=== PATIENT | male | born 1995 | race Caucasian/White ===

== ENCOUNTER 2022-02-03 18:06 | Emergency (ER) | payer MEDICAID ==
--- NOTE | 2022-02-03 18:09 | ERPHSYRPT ---
- History of Present Illness Time Seen by Provider: 02/03/22 18:09 Source: patient Exam Limitations: no limitations Physician History: This is a left handed 26-year-old male who was cutting metal on a part of his car using a knife when the blade slipped and cut the first webspace of his right hand. Patient's last tetanus injection was 10 years ago. Timing/Duration: today Quality: painful Severity: mild Location: hands (Right hand first webspace dorsal aspect) Possible Causes: other (Knife blade) Associated Symptoms: denies symptoms Allergies/Adverse Reactions: No Known Drug Allergies Allergy (Verified 02/03/22 18:12) Hx Tetanus, Diphtheria Vaccination/Date Given: Yes Hx Influenza Vaccination/Date Given: No Hx Pneumococcal Vaccination/Date Given: No Travel Risk - International Travel Have you traveled outside of the country in past 3 weeks: No - Coronavirus Screening Are you exhibiting any of the following symptoms?: No Close contact with a COVID-19 positive Pt in past 14-21 Days: No - Review of Systems Constitutional: No Symptoms Eyes: No Symptoms Ears, Nose, & Throat: No Symptoms Respiratory: No Symptoms Cardiac: No Symptoms Abdominal/Gastrointestinal: No Symptoms Genitourinary Symptoms: No Symptoms Musculoskeletal: No Symptoms Skin: Other (Laceration dorsal aspect right hand1 cmfirst webspace) Neurological: No Symptoms Psychological: No Symptoms Endocrine: No Symptoms Hematologic/Lymphatic: No Symptoms Immunological/Allergic: No Symptoms All Other Systems: Reviewed and Negative - Past Medical History Pertinent Past Medical History: No - Past Surgical History Past Surgical History: No - Social History Smoking Status: Never smoker Exposure to second hand smoke: No Drug Use: none Patient Lives Alone: No - Nursing Vital Signs Nursing Vital Signs: Initial Vital Signs Temperature 97.9 F 02/03/22 18:13 Pulse Rate 85 02/03/22 18:13 Respiratory Rate 18 02/03/22 18:13 Blood Pressure 130/69 02/03/22 18:13 O2 Sat by Pulse Oximetry 97 02/03/22 18:13 Pain Scale Pain Intensity 5 - Physical Exam General Appearance: no apparent distress, alert, anxiety Eye Exam: PERRL/EOMI, eyes nml inspection Ears, Nose, Throat Exam: normal ENT inspection, moist mucous membranes Neck Exam: normal inspection, non-tender, supple, full range of motion Respiratory Exam: airway intact, No chest tenderness, No respiratory distress Gastrointestinal/Abdomen Exam: No tenderness Rectal Exam: not done Back Exam: normal inspection, normal range of motion, No CVA tenderness, No vertebral tenderness Extremity Exam: normal range of motion, pelvis stable, lacerations (1 cm laceration right hand first webspace dorsal aspect. No active bleeding. No foreign body. Tendons intact. Neurovascularly intact) Neurologic Exam: alert, oriented x 3, cooperative, bioassayist II-XII nml as tested, normal mood/affect, nml cerebellar function, nml station & gait, sensation nml Skin Exam: laceration (Lacerationsee above) Lymphatic Exam: No adenopathy SpO2 Interpretation: normal O2 Delivery: Room Air Procedures - Laceration/Wound Repair Right Dorsal Hand Time of Procedure: 18:35 Wound Location: Right, hand (Dorsal aspect first webspace) Wound Length (cm): 1 Wound's Depth, Shape: superficial, linear, into subcut Wound Explored: clean (Evaluation made to the base into bloodless field. No foreign body noted) Irrigated: Yes Hibiclens Prep: Yes Anesthesia: 1% Lidocaine Volume Anesthetic (ccs): 1.5 Wound Repaired With: sutures Suture Size/Type: 4-0, prolene Number of Sutures: 3 Layer Closure?: No Sterile Dressing Applied?: Yes Splint Applied?: No Ordered Tests: Active Orders 24 hr Category Date Time Status Wound Care STAT Care 02/03/22 18:24 Active Medication Summary Discontinued Medications Generic Name Dose Route Start Last Admin Trade Name Freq PRN Reason Stop Dose Admin Bacitracin Zinc 0.9 each 02/03/22 18:25 02/03/22 18:44 Bacitracin Packet 1 Each Pckt TP 02/03/22 18:26 Not Given STAT ONE Diphtheria/Tetanus/Acell Pertussis 0.5 ml 02/03/22 18:41 Tdap --Diph,Pertuss(Acell),Tet Vac/Pf 0.5 Ml Vial IM 02/03/22 18:42 .ONCE ONE Lidocaine HCl Confirm 02/03/22 18:19 Lidocaine Hcl 1% 20 Ml Mdv 20 Ml Ml Administered 02/03/22 18:20 Dose 5 ml .ROUTE .STK-MED ONE Lidocaine HCl 5 ml 02/03/22 18:25 02/03/22 18:26 Lidocaine Hcl 1% 20 Ml Mdv 20 Ml Ml IJ 02/03/22 18:26 5 ml STAT ONE Administration - Progress Progress: improved Counseled pt/family regarding: diagnosis, need for follow-up, rad results - Departure Departure Disposition: Home Clinical Impression: Laceration of right hand Condition: Stable Critical Care Time: No Additional Instructions: Keep current dressing in place until tomorrow evening (evening of 02/04/2022). At that time you may remove the dressing and wash the site daily thereafter. Cover the site daily after washing and drying with a bandage. Suture removal in 8 to 10 days. Take your antibiotics as prescribed. Prescriptions: Cephalexin Mh 500 mg [Keflex 500 mg] 500 mg PO TID #15 cap
[2022-02-03] MEDS ORDERED: XYLOCAINE 1% HCL 20 ML MDV ONE (18:19)
[2022-02-03 18:24] VITALS: BP 130/69
[2022-02-03] MEDS ORDERED: BACIGUENT PACKET TP ONE (18:25)
[2022-02-03] MEDS ORDERED: XYLOCAINE 1% HCL 20 ML MDV IJ ONE (18:25)
[2022-02-03] MEDS ORDERED: Adacel Vial IM ONE ×2 (18:41→18:46)
[2022-02-03 18:59] VITALS: PULSE 76; O2SAT 99
== END 2022-02-03 19:00 | disposition home or self-care (01) ==
LOC: ED 18:06
DX: S61.411A Laceration without foreign body of right hand, initial encounter (principal); W26.0XXA Contact with knife, initial encounter
CPT/HCPCS: 12001; 90471; 90715; 96372; 99283

== ENCOUNTER → 2022-05-27 | Emergency (ER) | payer MEDICAID ==
[2022-05-27 12:52] VITALS: BP 113/77; PULSE 100; O2SAT 98
== END ==
LOC: ED 12:44
DX: M25.531 Pain in right wrist (principal)
CPT/HCPCS: 99281; G0463

== ENCOUNTER 2025-04-24 17:30 | Emergency (ER) | payer MEDICAID ==
[2025-04-24 17:45] VITALS: PULSE 69; TEMP 99.3; O2SAT 100
--- NOTE | 2025-04-24 18:23 | ERPHSYRPT ---
- History of Present Illness Time Seen by Provider: 04/24/25 18:23 Source: patient, family Patient Subjective Stated Complaint: pt c/o of right upper back mouth pain, pt went to the dentist on Tuesday and was given an antibiotic Triage Nursing Assessment: Pt brought to the ER by his grandma, vitals wnl, pain 6/10, pulses normal, skin n/w/d, no difficulty breathing, denies chest pain, pt states that he has taken the antibiotic since Tuesday and it hasn't gotten any better and x-rays were done and they didn't find anything out of the ordinary, pt states that his face feels swollen, doesn't appear to be in any distress Physician History: This is a 29-year-old white male patient who arrives to the emergency department by private vehicle accompanied by his grandmother and is a patient of Dr. Martinez. The patient is had 2-day history of worsening right upper molar pain that is shooting sharp, severe pain to his right cheek and up his mosque and down his jaw on the right side. He never had anything like this before. He denies trauma. Patient was seen by his dentist and started on antibiotics. He has also been using topical clove medication and ibuprofen. He is here today because the pain is worsening. He has taken the antibiotics and there is been no improvement in his pain. In fact, he states the pain is worsening Timing/Duration: abrupt onset Severity: moderate ENT Location: dental (Right upper posterior molar) Prearrival Treatment: over the counter meds, prescription meds Modifying Factors: Improves With: nothing Associated Symptoms: facial pain/swelling (Right facial sharp severe pain without swelling or redness) Allergies/Adverse Reactions: No Known Drug Allergies Allergy (Verified 04/24/25 17:45) Hx Tetanus, Diphtheria Vaccination/Date Given: Yes Hx Influenza Vaccination/Date Given: No Hx Pneumococcal Vaccination/Date Given: No Travel Risk - International Travel Have you traveled outside of the country in past 3 weeks: No - Emerging Infectious Disease Are you exhibiting symptoms associated with any current EIDs: No - Review of Systems Constitutional: No Symptoms Eyes: No Symptoms Ears, Nose, & Throat: Other (Right posterior upper molar and gingival pain) Respiratory: No Symptoms Cardiac: No Symptoms Abdominal/Gastrointestinal: No Symptoms Genitourinary Symptoms: No Symptoms Musculoskeletal: No Symptoms Skin: No Symptoms Neurological: No Symptoms Psychological: No Symptoms Endocrine: No Symptoms Hematologic/Lymphatic: No Symptoms Immunological/Allergic: No Symptoms All Other Systems: Reviewed and Negative - Past Medical History Pertinent Past Medical History: No - Past Surgical History Past Surgical History: No - Social History Smoking Status: Current every day smoker How long have you smoked: marijuana Exposure to second hand smoke: Yes Drug Use: marijuana - Social Determinants of Health Will the patient participate in the screening: Yes Do you worry about a steady place to live?: No Do you have any problems with any of the following?: No known problems In the past 12 months,have you had to go without utilities?: No Transportation Issues: No Has anyone in your support network made you feel unsafe?: No Have you or anyone in your house had to go w/o enough food: No - Nursing Vital Signs Nursing Vital Signs: Initial Vital Signs Temperature 99.3 F 04/24/25 17:38 Pulse Rate 69 04/24/25 17:38 Blood Pressure 137/87 04/24/25 17:38 O2 Sat by Pulse Oximetry 100 04/24/25 17:38 Pain Scale Pain Intensity 10 - Physical Exam General Appearance: mild distress, alert, anxiety, thin Eye Exam: bilateral eye: normal inspection, PERRL, EOMI Ear Exam: bilateral ear: auricle normal, canal normal, TM normal Nasal Exam: normal inspection Throat Exam: pharynx normal, dental tenderness (Right upper posterior molars with some swelling and gingivaldental junction redness), moist mucus membranes Neck Exam: normal inspection, non-tender, supple, full range of motion Cardiovascular/Respiratory Exam: chest non-tender, no respiratory distress Abdominal Exam: non-tender Neurologic Exam: alert, oriented x 3, cooperative, management rep II-XII nml as tested, normal mood/affect, nml cerebellar function, nml station & gait, sensation nml Skin Exam: normal color, warm, dry SpO2 Interpretation: normal SpO2: 100 O2 Delivery: Room Air - Course Nursing assessment & vital signs reviewed: Yes Ordered Tests: Medication Summary Generic Name Dose Route Start Last Admin Trade Name Freq PRN Reason Stop Dose Admin Amitriptyline HCl 25 mg 04/24/25 18:47 Amitriptyline Hcl 25 Mg Tablet PO 04/24/25 18:48 STAT ONE Oxycodone/Acetaminophen 1 tab 04/24/25 18:47 Oxycodone Hcl/Apap 5 Mg/325 Mg Tablet PO 04/24/25 18:48 STAT STA Discontinued Medications Generic Name Dose Route Start Last Admin Trade Name Noé PRMars Reason Stop Dose Admin Ketorolac Tromethamine 30 mg 04/24/25 18:26 04/24/25 18:30 Ketorolac Tromethamine 30 Mg/Ml Inj IM 04/24/25 18:27 30 mg STAT ONE Administration Ketorolac Tromethamine Confirm 04/24/25 18:29 Ketorolac Tromethamine 30 Mg/Ml Inj Administered 04/24/25 18:30 Dose 30 mg .ROUTE .Acustream-aBIZinaBOX ONE - Progress Progress Note: 04/24/25 18:52 My medical decision making and the assignment of low to moderate complexity of this patient's medical issue today is based on review of the patient's past medical history, reviewed patient's medication list, reviewed patient drug allergy list, history present illness and physical findings on examination. The workup in this patient does not necessitate radiographic or laboratory studies. Differential diagnosis includes but is not limited to dental infection, gingivitis, trigeminal neuralgia Counseled pt/family regarding: diagnosis, need for follow-up Medical Desision Making - Independent Historian Additional History obtained from: Family - Diagnostic Testing Diagnostic test were ordered, analyzed, and reviewed by me: No - Risk of complications The pt has a mod risk of morbidity or mortality based on: Need for prescription drug management - Departure Departure Disposition: Home Clinical Impression: Pain due to dental caries, Trigeminal neuralgia of right side of face Condition: Stable Critical Care Time: No Referrals: LIBBY MARTINEZ MD [Primary Care Provider, [facility]] - Follow up/PCP as directed Additional Instructions: Continue your antibiotics as prescribed. Continue ibuprofen 600 mg orally with food 3 times a day. Take the amitriptyline as prescribed. Call your primary care provider tomorrow, 04/25/2025, to make arrangements for follow-up appointment for further evaluation management. Forms: Work/School Release Form Prescriptions: Amitriptyline HCl 10 mg PO QHS #3 tablet
[2025-04-24] MEDS ORDERED: TORAdol 30 mg Injection ONE (18:29)
[2025-04-24] MEDS: TORAdol 30 mg Injection IM ONE (18:30)
[2025-04-24] MEDS ORDERED: PERCOCET TABLET 5/325MG ONE (18:52)
[2025-04-24] MEDS: PERCOCET TABLET 5/325MG PO STA (18:57)
[2025-04-24] MEDS: AMITRIPTYLINE 25 MG TABLET PO ONE (19:02)
[2025-04-24 19:04] VITALS: BP 125/73
== END 2025-04-24 19:10 | disposition home or self-care (01) ==
LOC: ED 17:30
DX: G50.0 Trigeminal neuralgia (principal); K02.9 Dental caries, unspecified; K08.89 Other specified disorders of teeth and supporting structures; Z72.0 Tobacco use

== ENCOUNTER 2025-05-08 17:54 | Emergency (ER) | payer MEDICAID ==
[2025-05-08 18:05] VITALS: PULSE 69; TEMP 97.7; O2SAT 98
[2025-05-08] MEDS ORDERED: Levofloxacin 500 MG Tablet ONE (18:30)
[2025-05-08] MEDS ORDERED: MOTRIN 600 MG ONE (18:30)
[2025-05-08] MEDS: MOTRIN 600 MG PO ONE (18:32)
[2025-05-08] MEDS: Levofloxacin 500 MG Tablet PO SCH (18:32)
--- NOTE | 2025-05-08 18:33 | ERPHSYRPT ---
- History of Present Illness Time Seen by Provider: 05/08/25 17:54 Source: patient Patient Subjective Stated Complaint: pt stepped on a nail this morning with his right foot Triage Nursing Assessment: Pt brought self to the ER, vitals wnl, rates pain as 6/10, pulses normal, skin n/w/d, small poke to the bottom of the right foot below the 5th toe pad, pt did clean with alcohol, denies any other injuries Physician History: This is a 29-year-old male otherwise healthy stepped on a nail at work that went through his tennis shoe while taking off his shower door. Patient the nail out of his shoe and foot it happened this morning. Patient's last tetanus was 3 years ago. This was in approximately the fifth metatarsal region of the right foot. No active bleeding. No lack of sensation. No other complaints Allergies/Adverse Reactions: No Known Drug Allergies Allergy (Verified 05/08/25 18:06) Hx Tetanus, Diphtheria Vaccination/Date Given: Yes (2021) Hx Influenza Vaccination/Date Given: No Hx Pneumococcal Vaccination/Date Given: No Travel Risk - International Travel Have you traveled outside of the country in past 3 weeks: No - Emerging Infectious Disease Are you exhibiting symptoms associated with any current EIDs: No - Review of Systems All Other Systems: Reviewed and Negative (As per HPI otherwise negative) - Past Medical History Pertinent Past Medical History: No - Past Surgical History Past Surgical History: No - Social History Smoking Status: Current every day smoker How long have you smoked: marijuana Exposure to second hand smoke: Yes Drug Use: marijuana - Social Determinants of Health Will the patient participate in the screening: Yes Do you worry about a steady place to live?: No Do you have any problems with any of the following?: No known problems In the past 12 months,have you had to go without utilities?: No Transportation Issues: No Has anyone in your support network made you feel unsafe?: No Have you or anyone in your house had to go w/o enough food: No - Nursing Vital Signs Nursing Vital Signs: Initial Vital Signs Temperature 97.7 F 05/08/25 17:58 Pulse Rate 69 05/08/25 17:58 Blood Pressure 118/76 05/08/25 17:58 O2 Sat by Pulse Oximetry 98 05/08/25 17:58 Pain Scale Pain Intensity 6 - Physical Exam SpO2: 98 Comments: 05/08/25 18:29 General: Well-nourished well-developed. No apparent distress. HEENT: Normocephalic atraumatic no obvious facial or neck deformity or injury. Neck: Supple. No deformity or mass noted. CV: RRR NL Perfusion. No edema Resp: No Respiratory distress or adventitious breath sounds Abd: ND SNT MSK: No deformity or TTP. Right foot base of fifth with no active bleeding or lesion. 2-second cap refill. Sensation intact. Neuro: Alert and [place] x4. No gross focal neurologic changes Psych: No SI, HI or grave disability 05/08/25 18:29 - Progress Progress Note: 05/08/25 18:30 Wound scrubbed Tech Bandar with chlorhexidine. Tetanus up-to-date. Will give him first dose of Levaquin in the emergency department and 1 dose of Motrin for pain control. Will send prescription of Levaquin to pharmacy for 7 days. Wound care precautions given. The patient's condition was discussed with themselves and/or family members in great detail. Precautions are given and need to return or call 911 immediately for any changes or worsening are discussed. Instructions on patient's condition and noting that conditions can change or worsen and that diagnosis are presumptive and can evolve are discussed. All questions were answered. All concerns addressed at this time - Departure Departure Disposition: Home Clinical Impression: Puncture wound of foot, right Qualifiers: Encounter type: initial encounter Qualified Code(s): S91.331A - Puncture wound without foreign body, right foot, initial encounter Condition: Stable Critical Care Time: No Referrals: LIBBY MARTINEZ MD [Primary Care Provider, [facility]] - Follow up/PCP as directed Instructions: Wound care - ED discharge instructions Additional Instructions: You have been evaluated for an emergency medical condition. At this time, given the current history and events presented, the examination conducted and any possible testing you may have had, you have been given a presumptive diagnosis based on the current information is obtained. Your discharge diagnosis is presumptive and not necessarily definitive. Medical conditions present in various stages very often without all the symptoms or findings described in medical literature. Other symptoms, concerns or conditions may arise and your diagnoses may evolve or change and/or your condition could potentially worsen after the time of disposition or discharge. You have been given a presumptive diagnosis and your condition appears to be stable, but your medical issues can change or worsen. If there is worsening of your condition including difficulty breathing, swallowing, speaking, chest pain or pressure, intractable vomiting, worsening or changing mental status, numbness, tingling or weakness of your body or arms or legs, thoughts or plans of harming yourself or others, or any other concerns, call 911 and/or return immediately to the closest emergency department. It is important you follow-up with your doctor on the next business day. Call your doctor, or the referral provided if you do not have a doctor, when they o pen to schedule a follow-up appointment in the next 1 or latest 2 days. Please refer to the attached sheet. If you do not have primary care doctor, you can call the [facility] referral line at [phone]. Return immediately if your symptoms worsen or if you are unable to obtain further care. My team and I thank you for choosing the [facility] emergency healthcare needs. We wish you a speedy recovery. Very respectfully, Dr. Meena Bennett M.D. [employer] Board-certified Emergency Physician Prescriptions: Ibuprofen [Ibu] 800 mg PO Q8H PRN PRN #15 tablet PRN Reason: Pain levoFLOXacin [Levofloxacin] 750 mg PO QAM 7 Days #7 tablet
[2025-05-08 18:36] VITALS: BP 132/69
== END 2025-05-08 18:46 | disposition home or self-care (01) ==
LOC: ED 17:54
DX: S91.331A Puncture wound without foreign body, right foot, initial encounter (principal); W22.09XA Striking against other stationary object, initial encounter; Z72.0 Tobacco use